=== PATIENT | female | born 1980 | race Caucasian/White ===

== ENCOUNTER 2017-10-06 11:26 | Observation (INO) | payer MEDICAID ==
--- NOTE | 2017-10-06 12:26 | ED PDOC ---
Arrival/HPI - General Chief Complaint: GI Problem Time Seen by Provider: 10/06/17 11:51 Historian: Patient - History of Present Illness Narrative History of Present Illness (Text): 10/06/17 12:10 A 37 year old female, whose past medical history includes asthma, anemia and borderline diabetes, anxiety, polyps, obesity, presents to the emergency room complaining of generalized abdominal pain, rectal bleeding, and increased flatulence x 9 days. Patient stated she had colonoscopy done x 9 days ago, in which she had 7 polyps removed without problem. Patient admits rectal bleeding , and flatulence has been chronic for over a year, but these symptoms has worsen last week. Patient stated rectal bleeding is trace, and occurs after BM. Denies rectal pain, weakness, sob, cp, headache, fever, neck stiffness, or abnormal gait. Time/Duration: Other (see hpi) Context: Home Past Medical History - Provider Review Nursing Documentation Reviewed: Yes - Infectious Disease Hx of Infectious Diseases: None - Cardiac Hx Cardiac Disorders: No - Pulmonary Hx Asthma: Yes - Neurological Hx Neurological Disorder: No - HEENT Hx HEENT Disorder: Yes Other/Comment: Pt uses glasses - Renal Hx Renal Disorder: No - Endocrine/Metabolic Hx Endocrine Disorders: Yes Hx Diabetes Mellitus Type 2: Yes - Hematological/Oncological Hx Blood Disorders: Yes Hx Anemia: Yes Hx Blood Transfusions: Yes - Genitourinary/Gynecological Hx Genitourinary Disorders: No - Psychiatric Hx Anxiety: Yes Hx Substance Use: No - Surgical History Hx Section: Yes Hx Cholecystectomy: Yes - Anesthesia Hx Anesthesia: Yes Hx Anesthesia Reactions: No Hx Malignant Hyperthermia: No Family/Social History - Physician Review Nursing Documentation Reviewed: Yes Family/Social History: Other (noncontributory) Smoking Status: Never Smoked Hx Alcohol Use: No Hx Substance Use: No Allergies/Home Meds Allergies/Adverse Reactions: Allergies barley Allergy (Verified 10/06/17 12:01) RASH Penicillins Allergy (Verified 10/06/17 12:01) RASH Home Medications: Home Meds Medication Instructions Recorded Confirmed No Known Home Med 10/06/17 10/06/17 Review of Systems - Review of Systems Constitutional: Normal. absent: Fatigue, Weight Change, Fevers, Night Sweats Eyes: Normal ENT: Normal Respiratory: Normal Cardiovascular: Normal Gastrointestinal: Abdominal Pain, Other (rectal bleeding). absent: Nausea, Vomiting Genitourinary Female: Normal Musculoskeletal: Normal Skin: Normal Neurological: Normal Endocrine: Normal Hemo/Lymphatic: Normal Psychiatric: Normal Physical Exam Vital Signs Temp Pulse Resp BP Pulse Ox 10/06/17 22:50 76 18 121/79 98 10/06/17 19:15 75 18 130/80 99 10/06/17 17:00 78 18 125/78 98 10/06/17 16:02 82 18 128/65 98 10/06/17 12:02 98.4 F 88 19 130/60 100 Temperature: Afebrile Blood Pressure: Normal Pulse: Regular Respiratory Rate: Normal Appearance: Positive for: Well-Appearing, Non-Toxic, Comfortable Pain Distress: None Mental Status: Positive for: Alert and Oriented X 3 - Systems Exam Head: Present: Atraumatic, Normocephalic Pupils: Present: PERRL Extroacular Muscles: Present: EOMI Conjunctiva: Present: Normal Mouth: Present: Moist Mucous Membranes Neck: Present: Normal Range of Motion Respiratory/Chest: Present: Clear to Auscultation, Good Air Exchange. No: Respiratory Distress, Accessory Muscle Use Cardiovascular: Present: Regular Rate and Rhythm, Normal S1, S2. No: Murmurs Abdomen: Present: Normal Bowel Sounds. No: Tenderness, Distention, Peritoneal Signs, Rebound, Guarding Rectal: Present: Normal Rectal Tone, Other (GUAIAC was positive with positive control. 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 No: Occult Blood, Rectal Tenderness, Gross Blood, Melena, Hemorrhoids, Fissures, Nodule/Mass/Lesions Back: Present: Normal Inspection. No: CVA Tenderness Upper Extremity: Present: Normal Inspection, Normal ROM. No: Cyanosis, Edema Lower Extremity: Present: Normal Inspection, Normal ROM. No: Edema Neurological: Present: GCS=15, CN II-XII Intact, Speech Normal, Motor Func Grossly Intact, Normal Sensory Function, Normal Cerebellar Funct, Gait Normal, Memory Normal Skin: Present: Warm, Dry, Normal Color. No: Rashes Psychiatric: Present: Alert, Oriented x 3, Normal Insight, Normal Concentration Medical Decision Making ED Course and Treatment: 10/06/17 12:28 Patient came with abdominal pain, and rectal bleeding , which worsen after colonoscopy and polyp removal x 9 days. I ordered labs, Urinalysis, CT scan abdomen/pelvis with contrast, Protonix, IVF 10/06/17 21:43 Dr. Jaramillo spoke with Dr. Bryant Surgeon, who agrees with plan for admission. Re-evaluation Time: 21:45 Reassessment Condition: Re-examined, Improving,but remains with symptoms - Lab Interpretations Lab Results: 10/06/17 12:10 10/06/17 12:10 Lab Results 10/06/17 12:10: Sodium 141, Potassium 3.9, Chloride 106, Carbon Dioxide 25, Anion Gap 13, BUN 14, Creatinine 0.9, Est GFR ( Amer) > 60, Est GFR (Non- Af Amer) > 60, Random Glucose 96, Calcium 9.5, Total Bilirubin 0.3, AST 19, ALT 24, Alkaline Phosphatase 103, Total Protein 7.9, Albumin 3.9, Globulin 4.0, Albumin/Globulin Ratio 1.0 L, Lipase 119 10/06/17 12:10: Urine Color Light yellow, Urine Appearance Clear, Urine pH 6.5, Ur Specific [place] 1.010, Urine Protein Negative, Urine Glucose (UA) Negative, Urine Ketones Negative, Urine Blood Negative, Urine Nitrate Negative, Urine Bilirubin Negative, Urine Urobilinogen 0.2, Ur Leukocyte Esterase Negative, Urine HCG, Qual Negative 10/06/17 12:10: PT 12.5, INR 1.09 H, APTT 28.1 10/06/17 12:10: WBC 7.8, RBC 4.89, Hgb 11.0 L, Hct 33.8 L, MCV 69.1 L, MCH 22.5 L, MCHC 32.5, RDW 17.9 H, Plt Count 229, Gran % 53.4, Lymph % (Auto) 38.9 H, [place] % (Auto) 6.4 H, Eos % (Auto) 1.0 L, Baso % (Auto) 0.3, Gran # 4.16, Lymph # 3.0, [place] # 0.5, Eos # 0.1, Baso # 0.02 I have reviewed the lab results: Yes Interpretation: No clinic. lab abnormalty (anemia) - RAD Interpretation Radiology Orders: 10/06/17 14:44 ABD & PELVIS IV CONTRAST ONLY [CT] Stat - Medication Orders Current Medication Orders: Acetaminophen (Tylenol 325mg Tab) 650 mg PO Q4 PRN PRN Reason: Fever >100.4 F Last Admin: 10/07/17 10:20 Dose: 650 mg MAR Pain/Vitals Document 10/07/17 10:20 MCV (Rec: 10/07/17 10:21 MCV [facility] [id number]) Pain Reassessment Is This A Pain ReAssessment? No Presence of Pain Presence of Pain No Pain Scale Used Pain Scale Used Numeric Location Pain Location Body Site Abdomen Description Pressure Pain Behavior Restlessness Aggravating Factors None Alleviating Factors Medication Ondansetron HCl (Zofran Inj) 4 mg IVP Q4 PRN PRN Reason: Nausea/Vomiting Discontinued Medications Sodium Chloride (Sodium Chloride 0.9%) 1,000 mls @ 1,000 mls/hr IV .Q1H STA Stop: 10/06/17 13:29 Last Admin: 10/06/17 12:50 Dose: 1,000 mls/hr eMAR Start Stop Document 10/06/17 12:50 SF (Rec: 10/06/17 12:50 SF [facility] [id number]) Intravenous Solution Start Date 10/06/17 Start Time 12:50 End Date 10/06/17 End time 13:50 Total Infusion Time 60 Sodium Chloride (Sodium Chloride 0.9%) 1,000 mls @ 100 mls/hr IV .Q10H STA Stop: 10/07/17 07:43 Last Admin: 10/06/17 22:25 Dose: 100 mls/hr eMAR Start Stop Document 10/06/17 22:25 GMD (Rec: 10/06/17 22:25 GMD [id number]) Intravenous Solution Start Date 10/06/17 Start Time 22:25 Sodium Chloride (Sodium Chloride 0.9%) 1,000 mls @ 100 mls/hr IV .Q10H [facility] [place] Last Admin: 10/07/17 00:40 Dose: 100 mls/hr eMAR Start Stop Document 10/07/17 00:40 MB (Rec: 10/07/17 00:40 MB [facility] [id number]) Intravenous Solution Start Date 10/07/17 Start Time 00:40 Morphine Sulfate (Morphine) 2 mg IVP Q4H AISHWARYA Stop: 10/07/17 09:00 Last Admin: 10/06/17 22:22 Dose: Not Given Non-Admin Reason: Patient Refused Pantoprazole Sodium (Protonix Inj) 40 mg IVP STAT STA Stop: 10/06/17 12:31 Last Admin: 10/06/17 12:50 Dose: 40 mg IVP Administration Document 10/06/17 12:50 SF (Rec: 10/06/17 12:50 SF [facility] [id number]) Charges for Administration # of IVP Administrations 1 Disposition/Present on Arrival - Present on Arrival Any Indicators Present on Arrival: No History of DVT/PE: No History of Uncontrolled Diabetes: No Urinary Catheter: No History of Decub. Ulcer: No History Surgical Site Infection Following: None - Disposition Have Diagnosis and Disposition been Completed?: Yes Diagnosis: Appendicitis, Rectal bleeding Disposition: HOSPITALIZED Disposition Time: 21:46 Patient Plan: Admission Patient Problems: Current Active Problems Problem Status Onset Appendicitis Acute Rectal bleeding Acute Condition: STABLE
[2017-10-06] MEDS ORDERED: Sodium Chloride 0.9% 1,000 ML IV STA ×2 (12:30→21:44)
[2017-10-06 12:44] LABS: BASO # 0.02 K/mm3 (0.0-2.0); BASO % 0.3 % (0.0-3.0); EOS # 0.1 (0.0-0.7); GRAN # 4.16 (1.4-6.5); GRAN % 53.4 % (50.0-68.0); LYMPH % 38.9 % (22.0-35.0); MEAN CELL VOLUME 69.1 fl (80.0-105.0); MEAN CORPUSCULAR HEMOGLOBIN 22.5 pg (25.0-35.0); MEAN CORPUSCULAR HGB CONC 32.5 g/dl (31.0-37.0); MONO # 0.5 (0.1-0.6); MONO % 6.4 % (1.0-6.0); PLATELET COUNT 229 10^3/uL (120.0-450.0); RBC 4.89 10^6/uL (3.5-6.1); RED CELL DISTRIBUTION WIDTH 17.9 % (11.5-14.5); WHITE BLOOD COUNT 7.8 10^3/ul (4.5-11.0)
[2017-10-06 12:51] LABS: PH,URINE 6.5 (4.7-8.0); URINE BILIRUBIN NEGATIVE (NEGATIVE); URINE BLOOD NEGATIVE (NEGATIVE); URINE GLUCOSE (UA) NEGATIVE (NEGATIVE); URINE LEUKOCYTE ESTERASE NEGATIVE Leu/uL (NEGATIVE); URINE NITRATE NEGATIVE (NEGATIVE); URINE PROTEIN NEGATIVE mg/dL (<30 mg/dL); URINE UROBILINOGEN 0.2 E.U./dL (<1 E.U./dL)
[2017-10-06 12:52] LABS: URINE APPEARANCE CLEAR (CLEAR); URINE COLOR LIGHT YELLOW (YELLOW)
[2017-10-06 12:53] LABS: ALBUMIN 3.9 g/dL (3.0-4.8); ALT/SGPT 24 U/L (7-56); AST/SGOT 19 U/L (14-36); BLOOD UREA NITROGEN 14 mg/dL (7-21); CALCIUM 9.5 mg/dL (8.4-10.5); GFR AFRICAN-AMERICAN > 60; GFR NON-AFRICAN AMERICAN > 60; LIPASE 119 U/L (23-300)
[2017-10-06 12:55] LABS: HCG,QUALITATIVE URINE NEGATIVE (NEGATIVE); INR 1.09 (0.93-1.08); PARTIAL THROMBOPLASTIN TIME 28.1 Seconds (25.1-36.5); PROTHROMBIN TIME 12.5 SECONDS (9.4-12.5)
[2017-10-06] MEDS ORDERED: Iohexol 350 MG/100 ML VIAL ONE (16:07)
[2017-10-06] MEDS ORDERED: Morphine 5 MG/ML SYRINGE IVP SCH (21:45)
--- NOTE | 2017-10-06 22:08 | CP.PCM.HP ---
History of Present Illness - History of Present Illness History of Present Illness: History and Physical Surgery- Dr. Bryant 37F significant recent PMHx of colonoscopy w/ > 90 polyps found and family history of colon cancers comes into the ED with RLQ sharp crampy abdominal pain for the last 2-3 months, and bright red blood in stool for > 1year. Patient states that she has a doctors appoint with her GI on 10/16/17 to follow up pathology results. Patient currently having regular BM with occasional bright red blood on paper towel and in toilet bowl. Denies recent unexplained weight gain/loss, fevers, chills, chest pain, shortness of breath, nausea, vomiting, diarrhea, dizziness, syncope, loss of consciousness GI: Dr. Kathleen Cortez PMD: Dr. Len Cortez PMH: Depression, Anxiety, childhood asthma, lifestyle controlled diabetes, multiple colon polyps seen on c-scope PSH: Cholecystectomy, x3, c-scope (2018) ALL: PCN- rash SocialHx: Denies etoh, tobacco, recreational drug use FamilyHx: mother, grandmother and sister Colon Ca Meds: pt does not recall which meds she takes, including depression and anxiety meds has not taken meds in > 1 month. Present on Admission - Present on Admission Any Indicators Present on Admission: No Review of Systems - Review of Systems All systems: reviewed and no additional remarkable complaints except - Constitutional Constitutional: As Per HPI Past Patient History - Infectious Disease Hx of Infectious Diseases: None - Past Social History Smoking Status: Never Smoked - CARDIAC Hx Cardiac Disorders: No - PULMONARY Hx Asthma: Yes - NEUROLOGICAL Hx Neurological Disorder: No - HEENT Hx HEENT Problems: Yes Other/Comment: Pt uses glasses - RENAL Hx Chronic Kidney Disease: No - ENDOCRINE/METABOLIC Hx Endocrine Disorders: Yes Hx Diabetes Mellitus Type 2: Yes - HEMATOLOGICAL/ONCOLOGICAL Hx Blood Disorders: Yes Hx Anemia: Yes Hx Blood Transfusions: Yes - GENITOURINARY/GYNECOLOGICAL Hx Genitourinary Disorders: No - PSYCHIATRIC Hx Anxiety: Yes Hx Substance Use: No - SURGICAL HISTORY Hx Section: Yes Hx Cholecystectomy: Yes - ANESTHESIA Hx Anesthesia: Yes Hx Anesthesia Reactions: No Hx Malignant Hyperthermia: No Meds Allergies/Adverse Reactions: Allergies Allergy/AdvReac Type Severity Reaction Status Date / Time barley Allergy RASH Verified 10/06/17 12:01 Penicillins Allergy RASH Verified 10/06/17 12:01 Physical Exam - Constitutional Appears: Non-toxic, No Acute Distress - Head Exam Head Exam: ATRAUMATIC - Eye Exam Eye Exam: EOMI. absent: Scleral icterus - ENT Exam ENT Exam: Mucous Membranes Moist - Respiratory Exam Respiratory Exam: NORMAL BREATHING PATTERN. absent: Accessory Muscle Use, Rales , Rhonchi, Wheezes, Respiratory Distress - Cardiovascular Exam Cardiovascular Exam: +S1, +S2. absent: Bradycardia, Tachycardia - GI/Abdominal Exam GI & Abdominal Exam: Soft, Tenderness. absent: Distended, Firm, Rigid - Extremities Exam Extremities exam: Positive for: normal inspection. Negative for: calf tenderness - Back Exam Back exam: absent: CVA tenderness (L), CVA tenderness (R) - Neurological Exam Neurological exam: Alert, Oriented x3 - Psychiatric Exam Psychiatric exam: Normal Affect - Skin Skin Exam: Intact, Normal Color Results - Vital Signs Recent Vital Signs: Last Vital Signs Temp 98.4 F 10/06/17 12:02 Pulse 75 10/06/17 19:15 Resp 18 10/06/17 19:15 BP 130/80 10/06/17 19:15 Pulse Ox 99 10/06/17 19:15 - Labs Result Diagrams: 10/07/17 06:30 10/07/17 06:30 Assessment & Plan - Assessment and Plan (Free Text) Assessment: 37F hx chronic abd RLQ abd pain, recent c-scope showing numerous polyps, BRBPR. hemodynamically stable, Hg stable, no leukocytosis Plan: - CLD; advance to regular diet in AM - IVF - pain control PRN - serial abd exams - no plan for acute surgical intervention at this time - will need a colon resection in the future and pathology results - discussed with Dr. Bryant surgical attending Garcia Martell PGY1
[2017-10-06] MEDS ORDERED: Lactated Ringer's 1,000 ML IV SCH (23:45)
[2017-10-07] MEDS ORDERED: Sodium Chloride 0.9% 1,000 ML IV SCH (00:45)
[2017-10-07 02:12] VITALS: BMI 42.7
[2017-10-07 07:18] LABS: BASO # 0.01 K/mm3 (0.0-2.0); BASO % 0.2 % (0.0-3.0); EOS # 0.1 (0.0-0.7); EOS % 0.8 % (1.5-5.0); GRAN # 3.75 (1.4-6.5); HEMOGLOBIN 10.3 g/dL (12.0-16.0); LYMPH # 2.4 (1.2-3.4); LYMPH % 36.7 % (22.0-35.0); MEAN CORPUSCULAR HEMOGLOBIN 22.3 pg (25.0-35.0); MEAN CORPUSCULAR HGB CONC 32.4 g/dl (31.0-37.0); MONO # 0.3 (0.1-0.6); MONO % 4.3 % (1.0-6.0); PLATELET COUNT 196 10^3/uL (120.0-450.0); RBC 4.61 10^6/uL (3.5-6.1); RED CELL DISTRIBUTION WIDTH 17.8 % (11.5-14.5); WHITE BLOOD COUNT 6.5 10^3/ul (4.5-11.0)
[2017-10-07 07:44] LABS: ALB/GLOB RATIO 0.9 (1.1-1.8); ALBUMIN 3.5 g/dL (3.0-4.8); ALT/SGPT 20 U/L (7-56); AST/SGOT 18 U/L (14-36); BLOOD UREA NITROGEN 11 mg/dL (7-21); CALCIUM 8.8 mg/dL (8.4-10.5); GFR AFRICAN-AMERICAN > 60; GFR NON-AFRICAN AMERICAN > 60
[2017-10-07 07:58] VITALS: BP 125/78; PULSE 85; RESP 20; TEMP 97.9; O2SAT 100
--- NOTE | 2017-10-07 08:35 | CP.PCM.PN ---
Subjective - Date & Time of Evaluation Date of Evaluation: 10/07/17 Time of Evaluation: 07:10 - Subjective Subjective: General Surgery Progress Note for Dr. Bryant Patient seen and examined at bedside. Patient denies any abdominal pain, nausea , vomiting, fever, or diarrhea. Patient request to try regular diet. Nurse reports no events overnight. Objective - Vital Signs/Intake and Output Vital Signs (last 24 hours): Temp Pulse Resp BP Pulse Ox 97.9 F 85 20 125/78 100 10/07/17 07:30 10/07/17 07:30 10/07/17 07:30 10/07/17 07:30 10/07/17 07:30 Intake and Output: 10/07/17 10/07/17 06:59 18:59 Intake Total 120 Output Total 0 Balance 120 - Medications Medications: Current Medications Acetaminophen (Tylenol 325mg Tab) 650 mg PO Q4 PRN PRN Reason: Fever >100.4 F Last Admin: 10/07/17 00:41 Dose: 650 mg Sodium Chloride (Sodium Chloride 0.9%) 1,000 mls @ 100 mls/hr IV .Q10H AISHWARYA Last Admin: 10/07/17 00:40 Dose: 100 mls/hr Ondansetron HCl (Zofran Inj) 4 mg IVP Q4 PRN PRN Reason: Nausea/Vomiting - Labs Labs: 10/07/17 06:30 10/07/17 06:30 PT 12.5 SECONDS (9.4-12.5) 10/06/17 12:10 INR 1.09 (0.93-1.08) H 10/06/17 12:10 APTT 28.1 Seconds (25.1-36.5) 10/06/17 12:10 - Constitutional Appears: Well, No Acute Distress - Head Exam Head Exam: ATRAUMATIC, NORMOCEPHALIC - Eye Exam Eye Exam: EOMI, Normal appearance - ENT Exam ENT Exam: Mucous Membranes Moist, Normal Oropharynx - Respiratory Exam Respiratory Exam: NORMAL BREATHING PATTERN. absent: Accessory Muscle Use - GI/Abdominal Exam GI & Abdominal Exam: Soft, Normal Bowel Sounds. absent: Guarding, Tenderness - Extremities Exam Extremities Exam: Normal Inspection. absent: Pedal Edema - Back Exam Back Exam: NORMAL INSPECTION. absent: CVA tenderness (L), CVA tenderness (R) - Neurological Exam Neurological Exam: Alert, Awake, CN II-XII Intact, Oriented x3 - Psychiatric Exam Psychiatric exam: Normal Affect, Normal Mood - Skin Skin Exam: Dry, Intact, Normal Color, Warm Assessment and Plan - Assessment and Plan (Free Text) Assessment: 37 year female with a past medical history of anemia who recently underwent a colonoscopy that demonstrated multiple (reportedly 90-plus) polyps in the colon who presents with crampy RLQ and periodic BRBPR. CT showed findings concerning for appendicitis. Plan: We will advance patient to regular diet and monitor clinically. No surgical intervention planned at this time. Discussed the possibility that the patient may need a subtotal coloctomy given her colonoscopy findings and family history of CRC. Case discussed with attending, Dr. Bryant.
--- NOTE | 2017-10-07 12:14 | CP.PCM.DIS ---
Provider - Provider Date of Admission: 10/06/17 21:30 Attending physician: Jaylen Bryant MD Consults: Dr. Mendez Time Spent in preparation of Discharge (in minutes): 40 Hospital Course - Lab Results Lab Results: Most Recent Lab Values WBC 6.5 10^3/ul (4.5-11.0) 10/07/17 06:30 RBC 4.61 10^6/uL (3.5-6.1) 10/07/17 06:30 Hgb 10.3 g/dL (12.0-16.0) L 10/07/17 06:30 Hct 31.8 % (36.0-48.0) L 10/07/17 06:30 MCV 69.0 fl (80.0-105.0) L 10/07/17 06:30 MCH 22.3 pg (25.0-35.0) L 10/07/17 06:30 MCHC 32.4 g/dl (31.0-37.0) 10/07/17 06:30 RDW 17.8 % (11.5-14.5) H 10/07/17 06:30 Plt Count 196 10^3/uL (120.0-450.0) 10/07/17 06:30 Gran % 58.0 % (50.0-68.0) 10/07/17 06:30 Lymph % (Auto) 36.7 % (22.0-35.0) H 10/07/17 06:30 [place] % (Auto) 4.3 % (1.0-6.0) 10/07/17 06:30 Eos % (Auto) 0.8 % (1.5-5.0) L 10/07/17 06:30 Baso % (Auto) 0.2 % (0.0-3.0) 10/07/17 06:30 Gran # 3.75 (1.4-6.5) 10/07/17 06:30 Lymph # 2.4 (1.2-3.4) 10/07/17 06:30 Branch # 0.3 (0.1-0.6) 10/07/17 06:30 Eos # 0.1 (0.0-0.7) 10/07/17 06:30 Baso # 0.01 K/mm3 (0.0-2.0) 10/07/17 06:30 PT 12.5 SECONDS (9.4-12.5) 10/06/17 12:10 INR 1.09 (0.93-1.08) H 10/06/17 12:10 APTT 28.1 Seconds (25.1-36.5) 10/06/17 12:10 Sodium 141 mmol/L (132-148) 10/07/17 06:30 Potassium 3.9 mmol/L (3.6-5.0) 10/07/17 06:30 Chloride 108 mmol/L (98-107) H 10/07/17 06:30 Carbon Dioxide 24 mmol/L (21-33) 10/07/17 06:30 Anion Gap 12 (10-20) 10/07/17 06:30 BUN 11 mg/dL (7-21) 10/07/17 06:30 Creatinine 0.8 mg/dl (0.7-1.2) 10/07/17 06:30 Est GFR ( Amer) > 60 10/07/17 06:30 Est GFR (Non-Af Amer) > 60 10/07/17 06:30 Random Glucose 100 mg/dL (70-110) 10/07/17 06:30 Calcium 8.8 mg/dL (8.4-10.5) 10/07/17 06:30 Total Bilirubin 0.5 mg/dL (0.2-1.3) 10/07/17 06:30 AST 18 U/L (14-36) 10/07/17 06:30 ALT 20 U/L (7-56) 10/07/17 06:30 Alkaline Phosphatase 107 U/L (38-126) 10/07/17 06:30 Total Protein 7.3 g/dL (5.8-8.3) 10/07/17 06:30 Albumin 3.5 g/dL (3.0-4.8) 10/07/17 06:30 Globulin 3.8 gm/dL 10/07/17 06:30 Albumin/Globulin Ratio 0.9 (1.1-1.8) L 10/07/17 06:30 Lipase 119 U/L (23-300) 10/06/17 12:10 Urine Color Light yellow (YELLOW) 10/06/17 12:10 Urine Appearance Clear (CLEAR) 10/06/17 12:10 Urine pH 6.5 (4.7-8.0) 10/06/17 12:10 Ur Specific [place] 1.010 (1.005-1.035) 10/06/17 12:10 Urine Protein Negative mg/dL (<30 mg/dL) 10/06/17 12:10 Urine Glucose (UA) Negative mg/dL (NEGATIVE) 10/06/17 12:10 Urine Ketones Negative mg/dL (NEGATIVE) 10/06/17 12:10 Urine Blood Negative (NEGATIVE) 10/06/17 12:10 Urine Nitrate Negative (NEGATIVE) 10/06/17 12:10 Urine Bilirubin Negative (NEGATIVE) 10/06/17 12:10 Urine Urobilinogen 0.2 E.U./dL (<1 E.U./dL) 10/06/17 12:10 Ur Leukocyte Esterase Negative Susi/uL (NEGATIVE) 10/06/17 12:10 Urine HCG, Qual Negative (NEGATIVE) 10/06/17 12:10 - Hospital Course Hospital Course: 37 year old female with a past medical history of anemia and multiple colon polyps who presented to [facility] [place] for right lower quandrant abdominal pain and bright red blood in stool. In the ED, CT of the abdomen and pelvis showed findings concerning for acute appendicitis; a tiny focus of air near the tip could represent micro perforation. No drainable fluid collection or abscess. Reactive enlargement of the right lower quadrant lymph nodes. The bright red blood per rectum has been a chronic problem for the patient and was periodically observed in the past two years, but has become constant since July of 2017. In fact, the patient had a colonoscopy 9 days ago in [place], [place] that revealed more than 90 polyps in the colon, and multiple biopsies were obtained. The biopsys of the polyps are likely what are observed in the CT, no an acute appendicitis. Nonetheless, the patient was monitored overnight with serial abdominal exams, remained afebrile, without a leukocytosis, tolerated a regular diet with remission of her RLQ pain. She was discharged with the below written instructions. - Date & Time of H&P Date of H&P: 10/07/17 Time of H&P: 12:23 Discharge Exam - Head Exam Head Exam: ATRAUMATIC, NORMOCEPHALIC - Eye Exam Eye Exam: EOMI, Normal appearance - ENT Exam ENT Exam: Mucous Membranes Moist, Normal Oropharynx - Neck Exam Neck exam: Normal Inspection - Respiratory Exam Respiratory Exam: Clear to PA & Lateral, NORMAL BREATHING PATTERN. absent: Accessory Muscle Use - Cardiovascular Exam Cardiovascular Exam: RRR, +S1, +S2 - GI/Abdominal Exam GI & Abdominal Exam: Normal Bowel Sounds. absent: Distended - Back Exam Back exam: NORMAL INSPECTION. absent: CVA tenderness (L), CVA tenderness (R) - Neurological Exam Neurological exam: Alert, CN II-XII Intact, Oriented x3 - Psychiatric Exam Psychiatric exam: Normal Affect, Normal Mood - Skin Skin Exam: Dry, Intact, Normal Color, Warm Discharge Plan - Follow Up Plan Condition: STABLE Disposition: HOME/ ROUTINE Instructions: Appendicitis (DC), Rectal Bleeding (DC), Regular Diet (GEN) Additional Instructions: Patient to return to the ED for any worsening of symptoms. Patient to take follow up with her GI/colorectal surgeon as scheduled.
== END 2017-10-07 14:24 | disposition home or self-care (01) ==
LOC: ED 11:26 → ERH 21:30 → 5RNO 10-07 00:16
PROVIDERS: ADMIT Surgery; ATTEND Surgery
DX: K37 Unspecified appendicitis (principal); E11.9 Type 2 diabetes mellitus without complications; J45.909 Unspecified asthma, uncomplicated; Z86.010 Personal history of colon polyps; Z90.49 Acquired absence of other specified parts of digestive tract; Z80.0 Family history of malignant neoplasm of digestive organs; K62.5 Hemorrhage of anus and rectum; D64.9 Anemia, unspecified; F41.9 Anxiety disorder, unspecified; Z88.0 Allergy status to penicillin; Z91.018 Allergy to other foods
CPT/HCPCS: 36415; 74177; 80053; 81003; 83690; 84703; 85025; 85610; 85730; 96361; 96374; 99285; C9113; G0378; J7040; Q9967

== ENCOUNTER 2017-11-23 19:59 | Emergency (ER) | payer MEDICAID ==
[2017-11-23 20:00] VITALS: BMI 42.7
[2017-11-23 20:07] VITALS: RESP 16; TEMP 98.3; O2SAT 99
--- NOTE | 2017-11-23 20:28 | ED PDOC ---
Arrival/HPI - General Chief Complaint: Weakness/Neurological Deficit Time Seen by Provider: 11/23/17 20:12 Historian: Patient - History of Present Illness Narrative History of Present Illness (Text): 11/23/17 21:38 37yo female with Past medical history of Asthma, Anemia, borderline diabetes present with complaint of fatigue. She notes fever and chills yesterday. Sore throat 2days ago and decrease appetite. She denies headache, cough, rhinorrhea, chest pain, shortness of breath, abdominal pain, nausea, vomiting, any other complaint. Past Medical History - Provider Review Nursing Documentation Reviewed: Yes - Infectious Disease Hx of Infectious Diseases: None - Cardiac Hx Cardiac Disorders: No - Pulmonary Hx Respiratory Disorders: Yes Hx Asthma: Yes - Neurological Hx Neurological Disorder: No - HEENT Hx HEENT Disorder: Yes Other/Comment: Pt uses glasses - Renal Hx Renal Disorder: No - Endocrine/Metabolic Hx Endocrine Disorders: Yes Hx Diabetes Mellitus Type 2: Yes - Hematological/Oncological Hx Blood Disorders: Yes Hx Anemia: Yes Hx Blood Transfusions: Yes - Integumentary Hx Dermatological Disorder: No - Musculoskeletal/Rheumatological Hx Musculoskeletal Disorders: No - Gastrointestinal Hx Gastrointestinal Disorders: No - Genitourinary/Gynecological Hx Genitourinary Disorders: No - Psychiatric Hx Psychophysiologic Disorder: Yes Hx Anxiety: Yes Hx Substance Use: No - Surgical History Hx Section: Yes Hx Cholecystectomy: Yes - Anesthesia Hx Anesthesia: Yes Hx Anesthesia Reactions: No Hx Malignant Hyperthermia: No Family/Social History - Physician Review Nursing Documentation Reviewed: Yes Family/Social History: Unknown Family HX Smoking Status: Never Smoked Hx Alcohol Use: No Hx Substance Use: No Allergies/Home Meds Allergies/Adverse Reactions: Allergies barley Allergy (Verified 11/23/17 20:01) RASH Penicillins Allergy (Verified 11/23/17 20:01) RASH Review of Systems - Physician Review All systems were reviewed & negative as marked: Yes - Review of Systems Constitutional: Fatigue Eyes: Normal ENT: Sore Throat Respiratory: Normal Cardiovascular: Normal Gastrointestinal: Normal Genitourinary Female: Normal Musculoskeletal: Normal Skin: Normal Neurological: Normal Endocrine: Normal Hemo/Lymphatic: Normal Psychiatric: Normal Physical Exam Vital Signs Reviewed: Yes Vital Signs Temp Pulse Resp BP Pulse Ox 11/23/17 20:02 98.3 F 93 H 16 118/83 99 Temperature: Afebrile Blood Pressure: Normal Pulse: Regular Respiratory Rate: Normal Appearance: Positive for: Well-Appearing, Non-Toxic, Comfortable Pain Distress: None Mental Status: Positive for: Alert and Oriented X 3 - Systems Exam Head: Present: Atraumatic, Normocephalic Pupils: Present: PERRL Extroacular Muscles: Present: EOMI Conjunctiva: Present: Normal Mouth: Present: Moist Mucous Membranes Pharnyx: Present: Normal Nose (Internal): Present: Normal Inspection Neck: Present: Normal Range of Motion Respiratory/Chest: Present: Clear to Auscultation, Good Air Exchange. No: Respiratory Distress, Accessory Muscle Use Cardiovascular: Present: Regular Rate and Rhythm, Normal S1, S2. No: Murmurs Abdomen: Present: Normal Bowel Sounds. No: Tenderness, Distention, Peritoneal Signs Back: Present: Normal Inspection Upper Extremity: Present: Normal Inspection. No: Cyanosis, Edema Lower Extremity: Present: Normal Inspection. No: Edema Neurological: Present: GCS=15, CN II-XII Intact, Speech Normal Skin: Present: Warm, Dry, Normal Color. No: Rashes Psychiatric: Present: Alert, Oriented x 3, Normal Insight, Normal Concentration Medical Decision Making - Lab Interpretations Lab Results: 11/23/17 20:50 11/23/17 20:50 Lab Results 11/23/17 21:00: Influenza Typ A,B (EIA) Pos for influenza a H 11/23/17 20:55: Urine Color Yellow, Urine Appearance Clear, Urine pH 6.0, Ur Specific [place] 1.020, Urine Protein Negative, Urine Glucose (UA) Negative, Urine Ketones Trace H, Urine Blood Negative, Urine Nitrate Negative, Urine Bilirubin Negative, Urine Urobilinogen 0.2, Ur Leukocyte Esterase Negative 11/23/17 20:55: Grp A Beta Strep Ag Negative 11/23/17 20:50: Sodium 139, Potassium 4.4, Chloride 104, Carbon Dioxide 26, Anion Gap 13, BUN 15, Creatinine 1.0, Est GFR ( Amer) > 60, Est GFR (Non- Af Amer) > 60, Random Glucose 116 H, Calcium 9.6, Total Bilirubin 0.2, AST 21, ALT 17, Alkaline Phosphatase 111, Total Protein 8.1, Albumin 4.0, Globulin 4.1, Albumin/Globulin Ratio 1.0 L 11/23/17 20:50: WBC 8.2 D, RBC 4.93, Hgb 11.1 L, Hct 33.2 L, MCV 67.3 L, MCH 22.5 L, MCHC 33.4, RDW 17.5 H, Plt Count 254, MPV 10.5, Gran % 48.8 L, Lymph % ( Auto) 43.9 H, [place] % (Auto) 5.6, Eos % (Auto) 1.5, Baso % (Auto) 0.2, Gran # 4.00, Lymph # (Auto) 3.6 H, Gordon # (Auto) 0.5, Eos # (Auto) 0.1, Baso # (Auto) 0.02 - Medication Orders Current Medication Orders: Discontinued Medications Oseltamivir Phosphate (Tamiflu Cap) 75 mg PO ONCE STA PRN Reason: Protocol Stop: 11/23/17 21:35 Disposition/Present on Arrival - Present on Arrival Any Indicators Present on Arrival: No History of DVT/PE: No History of Uncontrolled Diabetes: No Urinary Catheter: No History of Decub. Ulcer: No History Surgical Site Infection Following: None - Disposition Have Diagnosis and Disposition been Completed?: Yes Diagnosis: Influenza Disposition: HOME/ ROUTINE Disposition Time: 21:45 Patient Plan: Discharge Patient Problems: Current Active Problems Problem Status Onset Influenza Acute Condition: STABLE Discharge Instructions (ExitCare): Flu, Adult (DC) Additional Instructions: Drink plenty of fluid and rest follow up with your doctor Return to Emergency department for any new or worsening symptoms Prescriptions: Oseltamivir Phosphate [Tamiflu] 75 mg PO BID #10 capsule Referrals: [facility] at [facility] [place] [Outside] - Follow up with primary Forms: [employer] (Burkinan), WORK NOTE
[2017-11-23 20:59] LABS: BASO # 0.02 K/mm3 (0.0-2.0); BASO % 0.2 % (0.0-3.0); EOS # 0.1 (0.0-0.7); EOS % 1.5 % (1.5-5.0); GRAN % 48.8 % (50.0-68.0); HEMOGLOBIN 11.1 g/dL (12.0-16.0); LYMPH # 3.6 (1.2-3.4); LYMPH % 43.9 % (22.0-35.0); MEAN CELL VOLUME 67.3 fl (80.0-105.0); MEAN CORPUSCULAR HEMOGLOBIN 22.5 pg (25.0-35.0); MEAN CORPUSCULAR HGB CONC 33.4 g/dl (31.0-37.0); MEAN PLATELET VOLUME 10.5 fl (7.0-11.0); MONO # 0.5 (0.1-0.6); MONO % 5.6 % (1.0-6.0); RBC 4.93 10^6/uL (3.5-6.1); RED CELL DISTRIBUTION WIDTH 17.5 % (11.5-14.5); WHITE BLOOD COUNT 8.2 10^3/ul (4.5-11.0)
[2017-11-23 21:10] LABS: ALT/SGPT 17 U/L (7-56); AST/SGOT 21 U/L (14-36); BLOOD UREA NITROGEN 15 mg/dL (7-21); CALCIUM 9.6 mg/dL (8.4-10.5); GFR AFRICAN-AMERICAN > 60; GFR NON-AFRICAN AMERICAN > 60
[2017-11-23 21:18] LABS: URINE BILIRUBIN NEGATIVE (NEGATIVE); URINE BLOOD NEGATIVE (NEGATIVE); URINE COLOR YELLOW (YELLOW); URINE GLUCOSE (UA) NEGATIVE (NEGATIVE); URINE LEUKOCYTE ESTERASE NEGATIVE Leu/uL (NEGATIVE); URINE PROTEIN NEGATIVE mg/dL (<30 mg/dL); URINE UROBILINOGEN 0.2 E.U./dL (<1 E.U./dL)
[2017-11-23 21:19] LABS: URINE APPEARANCE CLEAR (CLEAR)
[2017-11-23 22:36] VITALS: BP 118/73; PULSE 89
== END 2017-11-23 21:56 | disposition home or self-care (01) ==
LOC: ED 19:59
DX: J11.1 Influenza due to unidentified influenza virus with other respiratory manifestations (principal); E11.9 Type 2 diabetes mellitus without complications